=== PATIENT | male | born 1945 | race Caucasian/White ===

== ENCOUNTER 2024-07-23 16:25 | Outpatient (NON) | payer MEDICARE, SELFPAY ==
[2024-07-23 16:42] LABS: Hematocrit 25.5 % (37.0-46.0); Hemoglobin 8.7 g/dL (12.4-15.3); Mean Corpuscular HGB Conc 34.1 g/dL (32-36); Mean Corpuscular Hemoglobin 28.9 pg (27.0-31.0); Mean Corpuscular Volume 84.7 fL (78.0-102.0); Mean Platelet Volume 12.2 fl (8.7-11.0); Platelet Count Result 44 K/mm3 (150-420); Red Blood Count 3.01 M/mm3 (4.70-6.10); Red Cell Distribution Width 13.4 % (11.6-14.4)
[2024-07-23 16:46] LABS: White Blood Count 0.8 K/mm3 (4.8-10.8)
[2024-07-23 17:09] LABS: Band Neutrophils Percent 4 % (0-6); Lymphocytes Absolute Manual 0.35 K/mm3 (1.1-4.5); Lymphocytes Percent Manual 44 % (18-44); Monocytes Absolute Manual 0.19 K/mm3 (0.1-0.90); Monocytes Percent Manual 24 % (3-9); Neutrophils Absolute Manual 0.25 K/mm3 (1.3-6.7); Neutrophils Percent Manual 28 % (46-73); Platelet Estimate Decreased (Adequate); Total Cells Counted 100
== END 2024-07-23 16:26 | disposition home or self-care (01) ==
LOC: CHSLAB 16:27
PROVIDERS: Visit Provider Internal Medicine
DX: C92.00 Acute myeloblastic leukemia, not having achieved remission (principal)
CPT/HCPCS: 36415; 85025; 85055

== ENCOUNTER 2024-07-25 13:01 | Outpatient (NON) | payer MEDICARE, SELFPAY ==
[2024-07-25 13:33] LABS: Hematocrit 24.6 % (37.0-46.0); Hemoglobin 8.3 g/dL (12.4-15.3); Mean Corpuscular HGB Conc 33.7 g/dL (32-36); Mean Corpuscular Hemoglobin 28.8 pg (27.0-31.0); Mean Corpuscular Volume 85.4 fL (78.0-102.0); Mean Platelet Volume 11.5 fl (8.7-11.0); Platelet Count Result 52 K/mm3 (150-420); Red Blood Count 2.88 M/mm3 (4.70-6.10); Red Cell Distribution Width 13.6 % (11.6-14.4)
[2024-07-25 13:39] LABS: White Blood Count 1.1 K/mm3 (4.8-10.8)
[2024-07-25 13:53] LABS: Band Neutrophils Percent 2 % (0-6); Lymphocytes Absolute Manual 0.62 K/mm3 (1.1-4.5); Lymphocytes Percent Manual 57 % (18-44); Monocytes Absolute Manual 0.13 K/mm3 (0.1-0.90); Monocytes Percent Manual 12 % (3-9); Neutrophils Absolute Manual 0.33 K/mm3 (1.3-6.7); Neutrophils Percent Manual 28 % (46-73); Platelet Estimate Decreased (Adequate); Total Cells Counted 100
== END 2024-07-25 13:02 | disposition home or self-care (01) ==
PROVIDERS: Visit Provider Internal Medicine
DX: C92.00 Acute myeloblastic leukemia, not having achieved remission (principal)
CPT/HCPCS: 85025; 85055

== ENCOUNTER 2024-08-01 15:15 | Outpatient (NON) | payer MEDICARE, SELFPAY ==
[2024-08-01 15:56] LABS: Hematocrit 24.1 % (37.0-46.0); Hemoglobin 7.9 g/dL (12.4-15.3); Immature Platelet Fraction Pct 8.4 % (1.0-7.0); Mean Corpuscular HGB Conc 32.8 g/dL (32-36); Mean Corpuscular Volume 88.6 fL (78.0-102.0); Mean Platelet Volume 11.5 fl (8.7-11.0); Platelet Count Result 93 K/mm3 (150-420); Red Blood Count 2.72 M/mm3 (4.70-6.10); Red Cell Distribution Width 15.5 % (11.6-14.4)
[2024-08-01 16:13] LABS: White Blood Count 1.4 K/mm3 (4.8-10.8)
[2024-08-01 16:25] LABS: Band Neutrophils Percent 0 % (0-6); Basophils Absolute Manual 0.01 K/mm3 (0-0.1); Basophils Percent Manual 1 % (0-1); Eosinophils Percent Manual 0 % (1-6); Lymphocytes Absolute Manual 0.56 K/mm3 (1.1-4.5); Lymphocytes Percent Manual 40 % (18-44); Monocytes Absolute Manual 0.18 K/mm3 (0.1-0.90); Monocytes Percent Manual 13 % (3-9); Neutrophils Absolute Manual 0.64 K/mm3 (1.3-6.7); Neutrophils Percent Manual 46 % (46-73); Total Cells Counted 100
[2024-08-01 16:26] LABS: Platelet Estimate Decreased (Adequate)
== END 2024-08-01 15:16 | disposition home or self-care (01) ==
LOC: CHSLAB 15:17
PROVIDERS: PCP Physician Assistant Medical; Visit Provider Internal Medicine
DX: C92.00 Acute myeloblastic leukemia, not having achieved remission (principal)
CPT/HCPCS: 36415; 85025; 85055

== ENCOUNTER 2024-08-03 12:44 | Outpatient (NON) | payer MEDICARE, SELFPAY ==
[2024-08-03 12:56] LABS: Hemoglobin 7.8 g/dL (12.4-15.3); Mean Corpuscular HGB Conc 32.5 g/dL (32-36); Mean Corpuscular Hemoglobin 28.9 pg (27.0-31.0); Mean Corpuscular Volume 88.9 fL (78.0-102.0); Mean Platelet Volume 11.5 fl (8.7-11.0); Platelet Count Result 102 K/mm3 (150-420)
[2024-08-03 13:00] LABS: White Blood Count 1.2 K/mm3 (4.8-10.8)
[2024-08-03 13:11] LABS: Band Neutrophils Percent 0 % (0-6); Basophils Percent Manual 0 % (0-1); Eosinophils Percent Manual 0 % (1-6); Lymphocytes Absolute Manual 0.48 K/mm3 (1.1-4.5); Lymphocytes Percent Manual 40 % (18-44); Monocytes Absolute Manual 0.14 K/mm3 (0.1-0.90); Monocytes Percent Manual 12 % (3-9); Neutrophils Absolute Manual 0.57 K/mm3 (1.3-6.7); Neutrophils Percent Manual 48 % (46-73); Platelet Estimate Decreased (Adequate); Total Cells Counted 100
== END 2024-08-03 12:45 | disposition home or self-care (01) ==
PROVIDERS: Visit Provider Internal Medicine
DX: C92.00 Acute myeloblastic leukemia, not having achieved remission (principal)
CPT/HCPCS: 36415; 85025